=== PATIENT | male | born 1980 | race Caucasian/White ===

== ENCOUNTER 2017-01-05 11:35 | Emergency (ER) | payer BC ==
[2017-01-05] MEDS ORDERED: Ibuprofen TAB* 800 MG PO ONE (11:57)
[2017-01-05] MEDS ORDERED: ceFAZolin 1 GM in Dextrose (*) 1 GM/50 ML BAG IVPB ONE (12:27)
[2017-01-05] MEDS ORDERED: Tetan/Diph/Pertus SYR(Tdap)* 0.5 ML SYR(BOOSTRIX) use SYR IM ONE (12:27)
--- NOTE | 2017-01-05 13:52 | ED ---
Laceration/Wound HPI - HPI Summary HPI Summary: 36M presents with right pinky finger laceration. He dropped a 100 pound dumbbell on his finger. His last tetanus is unknown. The area has not stopped bleeding. It hit the distal tip of his finger. - History of Current Complaint Stated Complaint: RT FINGER INJURY Time Seen by Provider: 01/05/17 11:50 Pain Intensity: 4 - Allergy/Home Medications Allergies/Adverse Reactions: Allergies Allergy/AdvReac Type Severity Reaction Status Date / Time No Known Allergies Allergy Verified 10/17/16 07:22 PMH/Surg Hx/FS Hx/Imm Hx Endocrine/Hematology History: Denies: Hx Anticoagulant Therapy Cardiovascular History: Reports: Other Cardiovascular Problems/Disorders - skips in heart, but no issues, possible from health supplements Denies: Hx Hypertension History: Reports: Hx Kidney Stones - on a yearly basis for last 5-6 years, none at this time Musculoskeletal History: Reports: Hx Arthritis - lower back, Hx Tendonitis - like a tennis elbows, Other Musculoskeletal History - Rt side sciatica, not at this time Sensory History: Reports: Hx Contacts or Glasses - glasses Denies: Hx Hearing Aid Opthamlomology History: Reports: Hx Contacts or Glasses - glasses Infectious Disease History: No Infectious Disease History: Denies: Traveled Outside the [place] in Last 30 Days - Family History Known Family History: Positive: Cardiac Disease - Social History Alcohol Use: Occasionally Substance Use Type: Reports: None Hx Tobacco Use: No Smoking Status (MU): Former Smoker Review of Systems Negative: Fever Negative: Chest Pain Negative: Shortness Of Breath Positive: Myalgia - right pinky finger Positive: Other - laceration right pinky finger All Other Systems Reviewed And Are Negative: Yes Physical Exam Triage Information Reviewed: Yes Vital Signs On Initial Exam: Initial Vitals Temp Pulse Resp BP Pulse Ox 98.8 F 88 16 157/77 97 01/05/17 11:37 01/05/17 11:37 01/05/17 11:37 01/05/17 11:37 01/05/17 11:37 Vital Signs Reviewed: Yes Appearance: Positive: Well-Appearing Skin: Positive: Warm, Dry Head/Face: Positive: Normal Head/Face Inspection Eyes: Positive: Normal, Conjunctiva Clear ENT: Positive: Normal ENT inspection, Pharynx normal, TMs normal Respiratory/Lung Sounds: Positive: Clear to Auscultation, Breath Sounds Present Cardiovascular: Positive: Normal, RRR Musculoskeletal: Positive: Other - good pulses, laceration of dorsal aspect of finger through nail at distal tip of right pinky that is 3 cm long Procedures - Laceration/Wound Repair 1 Location: Other - right pinky finger Description: Linear Anesthesia: Local, 1.0% Length, Depth and Shape: 3cm linear Betadine Prep?: Yes Irrigated w/ Saline (ccs): 1,000 Laceration/Wound Explored: clean Closure: Single Layer Debridement: minimal Suture Type: Prolene - 4-0 Number of Sutures: 9 Layer Closure?: No Sterile Dressing Applied?: No Diagnostics - Vital Signs Vital Signs Temp Pulse Resp BP Pulse Ox 01/05/17 11:37 98.8 F 88 16 157/77 97 - Laboratory Lab Statement: Any lab studies that have been ordered have been reviewed, and results considered in the medical decision making process. - Radiology finger Xray Interpretation: Positive (See Comments) - IMPRESSION: COMMINUTED TUFT FRACTURE Radiology Interpretation Completed By: Radiologist Laceration Repair Course/Dx - Course Course Of Treatment: 36M presents with right finger laceration s/p dropping a 100 lb dumbell on area, xray shows communicated tuff fracture so gave ancef and tetanus, placed 9 sutures on laceration, placed in splint and will have follow up with ortho, also placed on course of antibiotic patient understands and agrees with plan - Differential Dx Differental Diagnoses: Fracture, Laceration, Tendon Laceration - Clinical Impression Provider Diagnoses: Laceration of right little finger, Open fracture of tuft of distal phalanx of finger Discharge - Discharge Plan Condition: Good Disposition: HOME Prescriptions: Cephalexin CAP* [Keflex CAP*] 500 mg PO BID #20 cap traMADol TAB* [Ultram*] 25 mg PO Q8H PRN #9 tab MDD 3 PRN Reason: Pain Patient Education Materials: Care For Your Stitches (ED) Referrals: Sandoval Velasco MD [Medical Doctor] - No Primary Care Phys,NOPCP [Primary Care Provider] - Additional Instructions: Change bandage in 24 hours Take antibiotic twice for 10 days, starting tomorrow Keep splint on area Take Tylenol or ibuprofen for pain Keep area clean and dry for 48 hours Return to ED or primary in 10-14 days to have sutures removed Return to ED if develop signs of infection such as fever, spreading redness, or pus.
[2017-01-05 14:11] VITALS: BP 137/91
--- NOTE | 2017-01-05 15:10 | RAD ---
INDICATION: Traumatic fracture right fifth digit COMPARISON: None TECHNIQUE: AP, lateral, and oblique views were obtained. FINDINGS: There is a comminuted fractures of the tuft with distracted fragments. No other focal bony findings are seen. There is soft tissue injury about the nailbed/tuft fracture. IMPRESSION: COMMINUTED TUFT FRACTURE
== END 2017-01-05 14:10 | disposition home or self-care (01) ==
LOC: ED 11:35
DX: S61.216A Laceration without foreign body of right little finger without damage to nail, initial encounter (principal); S62.636A Displaced fracture of distal phalanx of right little finger, initial encounter for closed fracture; W22.8XXA Striking against or struck by other objects, initial encounter; Y93.9 Activity, unspecified; Y92.9 Unspecified place or not applicable
CPT/HCPCS: 12002; 73140; 90715; 99282; A9270-GY; J0690

== ENCOUNTER → 2017-01-12 | Day surgery (SDC) | payer BC ==
[~2017-01-12] MED LIST: Bupivacaine 0.5% SDV PF* 30 ML VIAL ONE; Lidocaine 2.5%/Prilocain 2.5%* 5 GM TUBE ONE; ceFAZolin 2 GM PREMIX (*) 0 GM/0 ML BAG IVPB ONE
[2017-01-12 16:24] VITALS: BP 159/94
--- NOTE | 2017-01-17 01:08 | OP ---
DATE OF OPERATION: 01/12/17 - [facility] DATE OF : 76 SURGEON: Sandoval Patel MD DANCING MASTER: SANGITA Cruz ANESTHESIOLOGIST: None. ANESTHESIA: Digital block performed with 0.5% plain Marcaine. PRE-OP DIAGNOSES: Right small finger tip crush injury with open distal phalanx fracture and significant distal sterile matrix injury and some necrosis. POST-OP DIAGNOSES: Right small finger tip crush injury with open distal phalanx fracture and significant distal sterile matrix injury and some necrosis. OPERATIVE PROCEDURE: 1. Debridement of skin, subcutaneous tissue, and bone, right small finger open fracture. 2. Closed treatment of right small finger distal phalanx open fracture. 3. Nail bed repair, right small finger. INDICATIONS: Adriel is a 36-year-old male. He had a dumbbell drop on the right small finger. This avulsed the nail plate. He went to the emergency room where wound was washed and closed. The nail plate was lost. He presented to my office with some necrosis of the distal nail matrix and in the hyponychial region. We talked about risks and benefits. He elected to proceed with the aforementioned surgery. ESTIMATED BLOOD LOSS: 5 mL. COMPLICATIONS: None. FINDINGS: As expected. DESCRIPTION OF PROCEDURE: Adriel was seen in the preoperative holding area and the correct side and site were marked. We had a time-out, then I performed a right small finger digital block with 0.5% Marcaine without epinephrine. He was then brought back to the operating room where the hand was prepped and draped in the usual fashion and formal time-out was performed. I began by taking out the stitches that were in place. The wound was then spread open with the tenotomy scissors. There was about 3 mm of necrosis of the distal sterile matrix where he had had the blunt force injury. This was all debrided out sharply. The skin margins distally in the hyponychium were debrided as well as there was necrosis there. The distal tuft was detached in a couple of pieces. This was excised sharply and the fragments were removed. There was a bit of foreign material, this was likewise debrided sharply. The necrotic sterile matrix was debrided as well. Underneath the remaining proximal viable sterile matrix, there was a transverse fracture through the distal phalanx that ended up exiting out ulnarly. It was in good position. I attempted to place a 0.028 K-wire to see if I can hold this in place, but ultimately fragment was just too small and I did not want to fracture it further ; therefore, I abandoned that idea. It was in good alignment, so I decided to just leave it alone and treat it without any internal fixation. I then contoured my distal skin flap and brought it out to make a nice tissue layer between the remaining sterile matrix and the distal skin. Ultimately, this was all then closed up with some 5-0 nylon suture. I then opened the nail fold back up with a Christiana elevator. I irrigated this out and then I contoured a piece of the aluminum wrapper from a chromic gut suture and placed this as the splint inside the nail fold. This was sutured down proximally and distally with a single 5-0 nylon suture each. Ultimately, we had just lost a few millimeters of length, but the fingertip was very nice. Remaining matrix looked viable. At this point, I went ahead and released the Tourni-Cot, which I had placed prior to beginning the operation. Finger pinked up immediately. I dressed the wound with Xeroform, some 1-inch Nila, and some Coban very loosely. He was then taken to the recovery room in stable condition. [id number]/[facility] #: [id number] KIMO
== END | disposition home or self-care (01) ==
LOC: OREAST 12:53
PROVIDERS: ATTEND Orthopaedic Surgery Hand Surgery
DX: S62.636B Displaced fracture of distal phalanx of right little finger, initial encounter for open fracture (principal); W23.0XXA Caught, crushed, jammed, or pinched between moving objects, initial encounter; Y93.79 Activity, other specified sports and athletics; Y92.9 Unspecified place or not applicable
CPT/HCPCS: 88304; A9270-GY; C1776; J0690